=== PATIENT | female | born 1990 | race Caucasian/White ===

== ENCOUNTER 2019-11-03 10:54 | Outpatient (CLI) | payer SELFPAY ==
--- NOTE | 2019-11-03 11:08 | XR_ITS ---
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 The proximal and distal humerus were normal. XR/[place] [id number] IMPRESSION: Remote fracture of the mid diaphysis of the humerus with angulation. The fracture is healed.
== END 2019-11-03 10:55 | disposition home or self-care (01) ==
PROVIDERS: Family Provider Counselor Professional; PCP Family Medicine; Visit Provider Pathology Clinical Pathology/Laboratory Medicine
DX: S42.302A Unspecified fracture of shaft of humerus, left arm, initial encounter for closed fracture (principal); X58.XXXA Exposure to other specified factors, initial encounter
CPT/HCPCS: 73060